=== PATIENT | female | born 1990 | race Caucasian/White ===

== ENCOUNTER 2017-02-13 20:15 | Emergency (ER) | payer OTHER ==
[2017-02-13 22:43] LABS: % IMMATURE GRANULYOCYTES 0.4 % (0.0-1.1); ABSOLUTE IMMATURE GRANULOCYTES 0.03 10^3/uL (0.00-0.10); ADD DIFF? NO; ADD MORPH? NO; ADD SCAN? NO; ATYPICAL LYMPHOCYTE FLAG 10 (0-99); FRAGMENT RBC FLAG 0 (0-99); HEMATOCRIT 41.8 % (38.0-47.0); HEMOGLOBIN 13.8 g/dL (12.6-16.3); LEFT SHIFT FLG 0 (0-99); LIPEMIA HEMOLYSIS FLAG 80 (0-99); MEAN CELL HEMOGLOBIN 29.6 pg (27.9-34.1); MEAN CELL VOLUME 89.5 fL (81.5-99.8); MEAN PLATELET VOLUME 8.7 fL (8.7-11.7); PLATELET CLUMPS FLAG 0 (0-99); PLATELET COUNT 310 10^3/uL (150-400); RED BLOOD CELL COUNT 4.67 10^6/uL (4.18-5.33); RED CELL DISTRIBUTION WIDTH 13.2 % (11.5-15.2)
[2017-02-13 22:48] LABS: INR 0.95 (0.83-1.16); PROTIME(PATIENT) 12.6 SEC (12.0-15.0)
[2017-02-13 22:49] LABS: APTT 24.8 SEC (23.0-38.0)
[2017-02-13 22:53] LABS: CALCIUM 9.4 mg/dL (8.5-10.4); CARBON DIOXIDE 28 mEq/l (22-31); CHLORIDE 100 mEq/L (97-110); CREATININE 0.8 mg/dL (0.6-1.0); GLOMERULAR FILTRATION RATE > 60; GLUCOSE 84 mg/dL (70-100)
[2017-02-13] MEDS ORDERED: RIVAROXABAN 15 MG TAB PO ONE (23:08)
--- NOTE | 2017-02-13 23:14 | EDPHY ---
H & P Stated Complaint: L calf pain, elevated D dimer - Personal History LMP (Females 10-55): 22-28 Days Ago Current Tetanus/Diphtheria Vaccine: Unsure - Medical/Surgical History Hx Asthma: Yes Hx Chronic Respiratory Disease: No Hx Diabetes: No Hx Cardiac Disease: No Hx Renal Disease: No Hx Cirrhosis: No Hx Alcoholism: No Hx HIV/AIDS: No Hx Splenectomy or Spleen Trauma: No Other PMH: PMHx: exercise induced asthma. PSHx: wisdom tooth extraction - Social History Smoking Status: Never smoked Time Seen by Provider: 02/13/17 20:25 HPI/ROS: Chief complaint: Left calf pain History of present illness: This is a 26-year-old female who presents to the emergency department for left calf pain. Patient reports the onset of symptoms approximately 2 days ago. She denies any known precipitating factors although she states she is very athletic and wonders if she just pulled a muscle. She was seen her primary care doctor today for a no other problem when she mentioned this. Her primary care doctor and a D-dimer and it was elevated and she was sent here. She denies other associated signs or symptoms including no abnormal coolness or paresthesias in the leg. Further no cough, shortness of breath or chest pain, no fevers or cold symptoms. She does report recently she had switch from low-dose to high-dose control because of insurance issues. (Jeremy Hernandez) - Physical Exam Exam: General Appearance: Alert, nontoxic. Eyes: Pupils equal and round no injection. Respiratory: Chest is non tender, lungs are clear to auscultation. Cardiovascular: regular rate and rhythm. DP and PT pulses 2+ bilaterally Musculoskeletal: Neck is supple and non tender. Extremities have full range of motion and are non tender. Skin: No rashes or lesions. (Jeremy Hernandez) Constitutional: Initial Vital Signs Temperature (C) 37.1 C 02/13/17 20:19 Heart Rate 88 02/13/17 20:19 Respiratory Rate 15 02/13/17 20:19 Blood Pressure 145/82 H 02/13/17 20:19 O2 Sat (%) 98 02/13/17 20:19 O2 Delivery Mode Room Air Allergies/Adverse Reactions: amoxicillin Allergy (Verified 02/13/17 20:18) bee venom protein (honey bee) Allergy (Verified 02/13/17 20:18) erythromycin base [From Pediazole] Allergy (Verified 02/13/17 20:18) sulfisoxazole [From Pediazole] Allergy (Verified 02/13/17 20:18) Home Medications: Medication Instructions Recorded Rivaroxaban [Xarelto 15mg (*)] 15 mg PO BID 21 Days tab 02/13/17 [id number] 02/13/17 Medical Decision Making ED Course/Re-evaluation: Patient seen under the supervision of my secondary supervising physician Dr. Hannah Perry. Patient presents for left calf pain with an elevated D-dimer. Her leg is neurovascularly intact. Ultrasound does reveal DVT. No evidence of complications including no evidence of PE. Baseline blood studies are obtained and unremarkable. She is started on Xarelto. She is discharged home to follow up with her primary care doctor. She understands when the prescription written at the ER runs out she is not done with therapy, she will need to talk with her primary care doctor about how long she will need to stay on blood thinners. Strict return precautions are given. Patient voiced understanding and agreement with plan. (Jeremy Hernandez) The patient was evaluated and managed by the physician ob gyn physician assistant. I have reviewed this chart and I agree with the findings and plan of care as documented , as indicated by my signature. I am the secondary supervising physician. ( Hannah Perry) Differential Diagnosis: Included but not limited to contusion, sprain or strain, superficial thrombophlebitis, DVT, infectious pathology (Jeremy Hernandez) - Data Points Laboratory Results: Laboratory Results 02/13/17 22:10 02/13/17 22:10 Medications Given: Discontinued Medications Rivaroxaban (Xarelto) 15 mg PO EDNOW ONE Stop: 02/13/17 23:09 Last Admin: 02/13/17 23:27 Dose: 15 mg Departure - Departure Disposition: Home, Routine, Self-Care Clinical Impression: DVT, lower extremity Condition: Good Instructions: Deep Venous Thrombosis (ED) Additional Instructions: Follow-up with your primary care doctor this week for continued evaluation and care You have been prescribed Xarelto as a blood thinning medication. Your prescribed a 21 day supply, when he finished this you're not complete her therapy, you will need to talk with your primary care doctor how long she wants to continue on the medication If symptoms worsen or new symptoms develop return to the emergency room for recheck Referrals: Becki Roberto MD [Primary Care Provider] - As per Instructions Prescriptions: Rivaroxaban [Xarelto 15mg (*)] 15 mg PO BID 21 Days tab
[2017-02-13 23:35] VITALS: RESP 16; O2SAT 96
[2017-02-13 23:36] VITALS: BP 132/67; PULSE 69; TEMP 98.1
[2017-02-14 18:52] LABS: ANION GAP 16 mEq/L (8-16); SODIUM 144 mEq/L (134-144)
== END 2017-02-13 23:36 | disposition home or self-care (01) ==
DX: I82.402 Acute embolism and thrombosis of unspecified deep veins of left lower extremity (principal); J45.909 Unspecified asthma, uncomplicated

== ENCOUNTER → 2017-05-07 | Outpatient (CLI) | payer OTHER | LOC: FIMAGING 11:30 | PROVIDERS: ATTEND Family Medicine | DX: I82.492 Acute embolism and thrombosis of other specified deep vein of left lower extremity (principal) ==

== ENCOUNTER → 2017-08-06 | Outpatient (CLI) | payer OTHER | LOC: FIMAGING 14:09 | PROVIDERS: ATTEND Family Medicine | DX: Z03.89 Encounter for observation for other suspected diseases and conditions ruled out (principal); Z79.01 Long term (current) use of anticoagulants ==

== ENCOUNTER → 2017-08-21 | Outpatient (CLI) | payer OTHER | LOC: BMCIMAGING 11:59 | PROVIDERS: ATTEND Family Medicine | DX: R05 Cough (principal); R68.83 Chills (without fever); J45.990 Exercise induced bronchospasm ==

== ENCOUNTER → 2017-09-17 | Outpatient (CLI) | payer OTHER | LOC: BMCIMAGING 09:17 | PROVIDERS: ATTEND Family Medicine | DX: R05 Cough (principal); R07.9 Chest pain, unspecified ==

== ENCOUNTER → 2018-04-24 | Outpatient (CLI) | payer OTHER | LOC: BMCIMAGING 16:49 | PROVIDERS: ATTEND Family Medicine | DX: S06.0X0D Concussion without loss of consciousness, subsequent encounter (principal) ==

== ENCOUNTER → 2018-08-04 | Outpatient (CLI) | payer OTHER | LOC: BMCIMAGING 16:38 | PROVIDERS: ATTEND Family Medicine | DX: I80.02 Phlebitis and thrombophlebitis of superficial vessels of left lower extremity (principal); M79.605 Pain in left leg; Z86.718 Personal history of other venous thrombosis and embolism ==